=== PATIENT | female | born 1950 | race Caucasian/White ===

== ENCOUNTER 2019-03-31 10:10 | Day surgery (SDC) | payer OTHER ==
[~2019-03-31] VITALS: Ht 162.6 cm; Wt 92.9 kg
[~2019-03-31 10:10] MED LIST: ATEN50; Aspir 8181 MG; BP MEDS X 2; BREO ELLIPTA 21 EACH; LEVSOD75 PO; LIOT50; SERT50; SYNTHROID0.2 MG; ZESTORETIC 20-1 EAC1
== END 2019-03-31 12:40 | disposition home or self-care (01) ==
LOC: ORSCSDS 10:10
PROVIDERS: Internal Medicine Gastroenterology
PROC: 0DBP8ZX Excision of Rectum, Via Natural or Artificial Opening Endoscopic, Diagnostic (ICD-10-PCS; principal; 2019-03-31 11:30)
DX: Z12.11 Encounter for screening for malignant neoplasm of colon (principal); K62.1 Rectal polyp; K64.8 Other hemorrhoids; Z79.899 Other long term (current) drug therapy; Z79.82 Long term (current) use of aspirin
CPT/HCPCS: 88305; J2704; J7120